=== PATIENT | female | born 1985 | race Caucasian/White ===

== ENCOUNTER 2017-06-28 05:20 | Emergency (ER) | payer MEDICAID ==
[~2017-06-28] VITALS: Wt 63.5 kg
[2017-06-28] MEDS ORDERED: SOD CHLORIDE 0.9% 1,000 ML IV STA (06:37)
[2017-06-28] MEDS ORDERED: morphine 2 MG INJ IV STA (06:37)
[2017-06-28] MEDS ORDERED: ONDANSETRON 4 MG INJ IV STA (06:37)
--- NOTE | 2017-06-28 06:40 | ERD ---
ER Documentation Chief Complaint Date/Time DATE: 06/28/17 TIME: 06:39 Chief Complaint AP radiating to the Right side, back and legs x2 hours HPI Patient is a 31-year-old female who presents with abdominal pain that began about 3 hours ago. She states it begins in her right flank and radiates forward. She has had nausea and vomiting. No diarrhea. No fever. No dysuria hematuria or increased urinary frequency. Pain is sharp in nature and 8 out of 10. Last menstrual period was on the 11th of last month. ROS All systems reviewed and are negative except as per history of present illness. Medications Home Meds Active Scripts Hydrocodone/Acetaminophen ([place] 5-325 Tablet) 1 Each Tablet, 1 TAB PO Q6H Y for PAIN, #15 TAB Prov:JACIEL FRANCES PA-C 06/28/17 Cephalexin* (Keflex*) 500 Mg Capsule, 500 MG PO BID for 7 Days, CAP Prov:JACIEL FRANCES PA-C 06/28/17 Ibuprofen* (Motrin*) 600 Mg Tab, 600 MG PO Q6, #30 TAB Prov:JACIEL FRANCES PA-C 06/28/17 Allergies Allergies: Coded Allergies: No Known Allergy (Verified , 12/25/14) PMhx/Soc History of Surgery: No Anesthesia Reaction: No Hx Neurological Disorder: No Hx Respiratory Disorders: No Hx Cardiac Disorders: No Hx Psychiatric Problems: No Hx Miscellaneous Medical Probl: No Hx Alcohol Use: No Hx Substance Use: No Hx Tobacco Use: No FmHx Family History: No diabetes Physical Exam Vitals Vital Signs Date Time Temp Pulse Resp B/P Pulse Ox O2 Delivery O2 Flow Rate FiO2 06/28/17 05:25 98.0 79 20 106/63 100 Physical Exam INITIAL VITAL SIGNS: Reviewed by me GENERAL: Awake, alert and oriented x 4, well appearing, nontoxic, speaking in full sentences. No acute distress HEAD: Atraumatic NECK: Supple. No masses. Full range of motion. No meningismus. No midline tenderness. RESPIRATORY: Clear to auscultation bilaterally. Symmetric chest wall rise. No wheezing or rales. No accessory muscle use. CV: Regular rate and rhythm. No murmurs, rubs, or gallops. ABDOMEN: Soft, non-distended. Nontender. Negative [place]. Negative McBurneys point tenderness. No CVA tenderness bilaterally. No guarding. No rebound. : Deffered. EXTREMITIES: No clubbing or cyanosis. No edema. Moving all extremities normally. BACK: No midline tenderness to palpation. No step-offs. Result Diagram: 06/28/17 0645 06/28/17 0645 Results 24 hrs Laboratory Tests Test 06/28/17 06:45 White Blood Count 7.010^3/ul Red Blood Count 4.1510^6/ul Hemoglobin 12.0g/dl Hematocrit 36.4% Mean Corpuscular Volume 87.7fl Mean Corpuscular Hemoglobin 28.9pg Mean Corpuscular Hemoglobin Concent 33.0g/dl Red Cell Distribution Width 12.8% Platelet Count 83817^3/UL Mean Platelet Volume 10.4fl Neutrophils % 79.6% Lymphocytes % 14.2% Monocytes % 5.2% Eosinophils % 0.3% Basophils % 0.3% Nucleated Red Blood Cells % 0.0/100WBC Neutrophils # (Manual) 5.510^3/ul Lymphocytes # 1.010^3/ul Monocytes # 0.410^3/ul Eosinophils # 0.010^3/ul Basophils # 0.010^3/ul Nucleated Red Blood Cells # 0.010^3/ul Urine Color RED Urine Clarity CLOUDY Urine pH 6.0 Urine Specific [place] 1.020 Urine Ketones NEGATIVEmg/dL Urine Nitrite NEGATIVEmg/dL Urine Bilirubin NEGATIVEmg/dL Urine Urobilinogen NEGATIVEmg/dL Urine Leukocyte Esterase 2+Raul/ul Urine Microscopic RBC > 182/HPF Urine Microscopic WBC 95/HPF Urine Squamous Epithelial Cells FEW/HPF Urine Bacteria FEW/HPF Urine Mucus FEW/HPF Urine Hemoglobin 3+mg/dL Urine Glucose NEGATIVEmg/dL Urine Total Protein 2+mg/dl Sodium Level 141mmol/L Potassium Level 3.7mmol/L Chloride Level 105mmol/L Carbon Dioxide Level 28mmol/L Anion Gap 12 Blood Urea Nitrogen 16mg/dl Creatinine 0.70mg/dl Glucose Level 116mg/dl Calcium Level 9.1mg/dl Total Bilirubin 0.3mg/dl Direct Bilirubin 0.00mg/dl Indirect Bilirubin 0.3mg/dl Aspartate Amino Transf (AST/SGOT) 23IU/L Alanine Aminotransferase (ALT/SGPT) 30IU/L Alkaline Phosphatase 102IU/L Total Protein 7.2g/dl Albumin 4.3g/dl Globulin 2.90g/dl Albumin/Globulin Ratio 1.48 Lipase 25U/L Current Medications Medications (Trade) Dose Ordered Sig/Tatiana Route PRN Reason Start Time Stop Time Status Last Admin Dose Admin Sodium Chloride (NS) 1,000 ml @ 1,000 mls/hr Q1H STAT IV 06/28/17 06:37 06/28/17 07:36 DC 06/28/17 06:49 Morphine Sulfate (morphine) 2 mg ONCE STAT IV 06/28/17 06:37 06/28/17 06:38 DC 06/28/17 06:48 Ondansetron HCl (Zofran Inj) 4 mg ONCE STAT IV 06/28/17 06:37 06/28/17 06:38 DC 06/28/17 06:48 Procedures/MDM Patients is alert, oriented, well appearing, and in no distress with normal vital signs. There is no fever, tachycardia, or tachypnea. The differential diagnosis includes but is not limited to appendicitis, cholelithiasis, cholecystitis, pancreatitis, hepatitis, gastritis, peptic ulcer disease, bowel obstruction, diverticulitis, renal disease including stones, torsion, AAA, pyelonephritis, and others. Abdominal labs and CT was ordered. Patient was given IV fluids, Zofran, and morphine.CBC and chemistry panel unremarkable. Urinalysis does show evidence of infection and CT scan shows a 3 mm x 4 mm kidney stone with mild hydronephrosis. Patient is well-appearing and had improvement of her symptoms with the medications she is suitable for outpatient management and was given prescription for ibuprofen, [place], and Keflex. Departure Diagnosis: Primary Impression: UTI (urinary tract infection) Additional Impression: Renal colic Condition: Stable JACIEL FRANCES PA-C Jun 28, 2017 06:40
[2017-06-28 07:05] LABS: BASOPHILS % 0.3 % (0.0-2.0); EOSINOPHILS % 0.3 % (0.0-7.0); HEMATOCRIT 36.4 % (37.0-47.0); LYMPHOCYTES % 14.2 % (15.0-51.0); MEAN CORPUSCULAR HEMOGLOBIN 28.9 pg (29.0-33.0); MEAN CORPUSCULAR VOLUME 87.7 fl (82.0-101.0); MEAN PLATELET VOLUME 10.4 fl (7.4-10.4); MONOCYTE # 0.4 10^3/ul (0.3-0.9); MONOCYTES % 5.2 % (0.0-11.0); NEUTROPHILS % 79.6 % (39.0-77.0); PLATELET COUNT 230 10^3/UL (140-415); RED BLOOD COUNT 4.15 10^6/ul (4.20-5.40); RED CELL DISTRIBUTION WIDTH 12.8 % (11.5-14.5)
[2017-06-28 07:29] LABS: ADD UMIC YES; UR ASCORBIC ACID NEGATIVE (NEGATIVE); UR BACTERIA FEW /HPF (NONE SEEN); UR BILIRUBIN (Dip) NEGATIVE (NEGATIVE); UR BLOOD (Dip) 3+ mg/dL (NEGATIVE); UR CLARITY CLOUDY (CLEAR); UR COLOR RED (YELLOW); UR GLUCOSE (Dip) NEGATIVE (NEGATIVE); UR KETONES (Dip) NEGATIVE (NEGATIVE); UR LEUKOCYTE ESTERASE (Dip) 2+ Leu/ul (NEGATIVE); UR MUCUS FEW /HPF (NONE SEEN); UR NITRITE (Dip) NEGATIVE (NEGATIVE); UR RBC > 182 /HPF (0-5); UR SQUAMOUS EPITHELIAL CELL FEW /HPF (FEW); UR TOTAL PROTEIN (Dip) 2+ mg/dl (NEGATIVE); UR UROBILINOGEN (Dip) NEGATIVE (NEGATIVE)
[2017-06-28 07:31] LABS: ALBUMIN 4.3 g/dl (3.3-4.9); ALBUMIN/GLOBULIN RATIO 1.48; BILIRUBIN,INDIRECT 0.3 mg/dl (0-1.1); BILIRUBIN,TOTAL 0.3 mg/dl (0.2-1.3); CALCIUM 9.1 mg/dl (8.4-10.2); CREATININE 0.7 mg/dl (0.44-1.00); POTASSIUM 3.7 mmol/L (3.5-5.1); TOTAL PROTEIN 7.2 g/dl (6.1-8.1)
--- NOTE | 2017-06-28 07:45 | RADRPT ---
PROCEDURE: CT Abdomen and pelvis without contrast. CLINICAL INDICATION: Abdominal pain. TECHNIQUE: CT scan of the abdomen and pelvis was performed on a multi-detector high-resolution CT scanner. Contiguous axial images were obtained from the lung bases to the ischial tuberosities wit hout intravenous contrast. Coronal and sagittal reformatted images were also obtained. Images were reviewed on the PACS workstation. One or more of the following dose reduction techniques were used: - Automated exposure control. - Adjustment of the mA and/or kV according to patient size. - Use of iterative reconstruction technique. Exam CTD/vol = 8.42 mGy. Total exam DLP = 459.73 mGy-cm. COMPARISON: None. FINDINGS: Evaluation of the lung bases demonstrates no pleural or parenchymal disease. Abdomen: The liver is normal in size. There is no focal mass or dilatation of the biliary tree. T he patient is status post cholecystectomy. The spleen is normal in size with punctate calcification s compatible with old granulomatous disease. The pancreas and bilateral adrenal glands are within no rmal limits. Bilateral kidneys are normal in size with no contour deforming mass identified. There is no radiopaque renal calculus identified. There is mild right-sided hydronephrosis. There is a 4 x 3 mm calculus at the right ureteropelvic junction. There is no retroperitoneal adenopathy. The abdominal aorta is of normal caliber. There is no abnormal bowel wall thickening or distension. There is no bowel obstruction or free air . A normal appendix is identified. There is no diverticulosis or diverticulitis. There is no asci sharlene. Pelvis: The bladder is unremarkable. The uterus contains an intrauterine device. There are multipl e cysts within the left adnexa with the largest measuring 4.1 x 3.7 cm. There is no significant pel jaylene adenopathy or free fluid. Evaluation of the osseous structures demonstrates no suspicious lytic or blastic lesion. IMPRESSION: Right ureteropelvic junction 4 x 3 mm calculus with mild right-sided hydronephrosis. Status post cholecystectomy. Multiple left adnexal cysts measuring up to 4.1 cm. Intrauterine device. .Tre Mann MD, Date Time Electronically viewed and signed by .Tre Mann MD, on 06/28/2017 07:45 .T/
[2017-06-28] MEDS ORDERED: HYDR-906 PO (07:50)
[2017-06-28] MEDS ORDERED: IBUP-1542 PO (07:50)
[2017-06-28] MEDS ORDERED: CEPH-443 PO (07:50)
[2017-06-28 08:13] VITALS: BP 105/60; PULSE 68; RESP 20; TEMP 98
== END 2017-06-28 08:10 | disposition home or self-care (01) ==
LOC: FTE 05:20
DX: N39.0 Urinary tract infection, site not specified (principal); N23 Unspecified renal colic
CPT/HCPCS: 36415; 74176; 80053; 81001; 83690; 85025; 96374; 96375; J2270; J2405; J7030; Z7502

== ENCOUNTER 2017-07-03 14:45 | Emergency (ER) | payer MEDICAID ==
[~2017-07-03] VITALS: Ht 152.4 cm; Wt 63.0 kg
[~2017-07-03 14:45] MED LIST: CEPH-443 PO; HYDR-906 PO; IBUP-1542 PO
[2017-07-03 15:03] VITALS: Ht 152.4 cm; Wt 63.0 kg
[2017-07-03] MEDS ORDERED: KETOROLAC 30 MG INJ IV STA (15:44)
[2017-07-03] MEDS ORDERED: ONDANSETRON 4 MG INJ IV STA (15:44)
[2017-07-03] MEDS ORDERED: SOD CHLORIDE 0.9% 1,000 ML IV ONE (16:00)
--- NOTE | 2017-07-03 16:40 | RADRPT ---
PROCEDURE: Ultrasound Retroperitoneum. CLINICAL INDICATION: Flank pain. TECHNIQUE: Bravo scale and color flow sonographic images of the kidneys and retroperitoneum were ob tained. The images were reviewed on a PACS workstation. COMPARISON: CT June 28, 2017 FINDINGS: The right kidney measures 10.8 cm. The left kidney measures 10.1 cm. The kidneys demonstrate normal echogenicity. A 4 mm echogenic, shadowing stone is seen in the inferior pole of the right kidney. N o hydronephrosis or solid masses are identified. The bladder is filled with a moderate amount of urine and has an unremarkable appearance. IMPRESSION: Nonobstructing right renal stone. RPTAT: AA .Yosef Rahman MD, Date Time Electronically viewed and signed by .Yosef Rahman MD, MD on 07/03/2017 16:40 .P/
[2017-07-03 17:22] LABS: BASOPHILS % 0.3 % (0.0-2.0); EOSINOPHILS # 0.1 10^3/ul (0.0-0.5); HEMATOCRIT 36.7 % (37.0-47.0); HEMOGLOBIN 11.7 g/dl (12.0-16.0); LYMPHOCYTES % 28.3 % (15.0-51.0); MEAN CORPUSCULAR HEMOGLOBIN 27.9 pg (29.0-33.0); MEAN CORPUSCULAR HGB CONC 31.9 g/dl (32.0-37.0); MEAN CORPUSCULAR VOLUME 87.6 fl (82.0-101.0); MEAN PLATELET VOLUME 10.3 fl (7.4-10.4); MONOCYTE # 0.4 10^3/ul (0.3-0.9); MONOCYTES % 6.2 % (0.0-11.0); NEUTROPHIL # 4.4 10^3/ul (1.6-7.5); NEUTROPHILS % 64.1 % (39.0-77.0); PLATELET COUNT 225 10^3/UL (140-415); RED BLOOD COUNT 4.19 10^6/ul (4.20-5.40); WHITE BLOOD COUNT 6.9 10^3/ul (4.8-10.8)
[2017-07-03 17:38] LABS: ADD UMIC YES; UR ASCORBIC ACID NEGATIVE (NEGATIVE); UR BACTERIA FEW /HPF (NONE SEEN); UR BILIRUBIN (Dip) NEGATIVE (NEGATIVE); UR BLOOD (Dip) 3+ mg/dL (NEGATIVE); UR CLARITY SLIGHTLY CLOUDY (CLEAR); UR COLOR YELLOW (YELLOW); UR GLUCOSE (Dip) NEGATIVE (NEGATIVE); UR KETONES (Dip) NEGATIVE (NEGATIVE); UR LEUKOCYTE ESTERASE (Dip) TRACE Leu/ul (NEGATIVE); UR MUCUS MODERATE /HPF (NONE SEEN); UR NITRITE (Dip) NEGATIVE (NEGATIVE); UR RBC > 182 /HPF (0-5); UR SPECIFIC GRAVITY (Dip) 1.012 (1.003-1.030); UR SQUAMOUS EPITHELIAL CELL MODERATE /HPF (FEW); UR TOTAL PROTEIN (Dip) 2+ mg/dl (NEGATIVE); UR UROBILINOGEN (Dip) NEGATIVE (NEGATIVE)
[2017-07-03 17:52] LABS: ALBUMIN 4.5 g/dl (3.3-4.9); ALBUMIN/GLOBULIN RATIO 1.5; BILIRUBIN,INDIRECT 0.4 mg/dl (0-1.1); BILIRUBIN,TOTAL 0.4 mg/dl (0.2-1.3); CALCIUM 9.3 mg/dl (8.4-10.2); CREATININE 0.71 mg/dl (0.44-1.00); POTASSIUM 3.8 mmol/L (3.5-5.1); TOTAL PROTEIN 7.5 g/dl (6.1-8.1)
[2017-07-03] MEDS ORDERED: IBUP-1542 PO (18:10)
[2017-07-03] MEDS ORDERED: HYDR-906 PO (18:10)
[2017-07-03] MEDS ORDERED: ONDA-43 PO (18:11)
--- NOTE | 2017-07-03 18:22 | ERD ---
ER Documentation Chief Complaint Date/Time DATE: 07/03/17 TIME: 18:19 Chief Complaint RIGHT FLANK PAIN, BLOOD IN THE URINE, SEEN IN ED LAST WEEK HPI This is a 31-year-old female presents ER with right flank pain. Patient does have blood in her urine. She denies any fevers or chills. She did have nausea and vomiting. Patient denies vomiting. Patient was diagnosed with a kidney stone on Friday. She states that the pain went away but that today the pain has gotten a lot worse. Patient denies any urinary frequency or dysuria. ROS 12 point review of systems was done, all negative except per HPI. Medications Home Meds Active Scripts Ondansetron Hcl* (Zofran*) 4 Mg Tab, 4 MG PO Q4H Y for NAUSEA AND OR VOMITING for 3 Days, TAB Prov:TK GRAHAM 07/03/17 Ibuprofen* (Motrin*) 600 Mg Tab, 600 MG PO Q6, #30 TAB Prov:TK GRAHAM 07/03/17 Hydrocodone/Acetaminophen ([place] 5-325 Tablet) 1 Each Tablet, 1 TAB PO Q6H Y for PAIN, #20 TAB Prov:TK GRAHAM 07/03/17 Hydrocodone/Acetaminophen ([place] 5-325 Tablet) 1 Each Tablet, 1 TAB PO Q6H Y for PAIN, #15 TAB Prov:JACIEL FRANCES PA-C 06/28/17 Cephalexin* (Keflex*) 500 Mg Capsule, 500 MG PO BID for 7 Days, CAP Prov:JACIEL FRANCES PA-C 06/28/17 Ibuprofen* (Motrin*) 600 Mg Tab, 600 MG PO Q6, #30 TAB Prov:JACIEL FRANCES PA-C 06/28/17 Allergies Allergies: Coded Allergies: No Known Allergy (Verified , 12/25/14) PMhx/Soc History of Surgery: Yes (cholecystectomy ) Anesthesia Reaction: No Hx Neurological Disorder: No Hx Respiratory Disorders: No Hx Cardiac Disorders: No Hx Psychiatric Problems: No Hx Miscellaneous Medical Probl: No Hx Alcohol Use: No Hx Substance Use: No Hx Tobacco Use: No Smoking Status: Never smoker Physical Exam Vitals Vital Signs Date Time Temp Pulse Resp B/P Pulse Ox O2 Delivery O2 Flow Rate FiO2 07/03/17 15:03 98.4 75 19 120/75 99 Physical Exam GENERAL: The patient is well developed and appropriate for usual state of health , in no apparent distress. HEENT: Atraumatic. CHEST: Clear to auscultation bilaterally. There are no rales, wheezes or rhonchi. HEART: Regular rate and rhythm. No murmurs, clicks, rubs or gallops. ABDOMEN: Soft, nontender and nondistended. Good bowel sounds. No rebound or guarding. No gross peritonitis. No gross organomegaly or masses. No Gutierrez sign or McBurney point tenderness. BACK: No midline or flank tenderness. EXTREMITIES: NEURO: Alert and oriented. SKIN: There is no apparent rash or petechia. The skin is warm and dry. Result Diagram: 07/03/17 1710 07/03/17 1710 Results 24 hrs Laboratory Tests Test 07/03/17 17:10 White Blood Count 6.910^3/ul Red Blood Count 4.1910^6/ul Hemoglobin 11.7g/dl Hematocrit 36.7% Mean Corpuscular Volume 87.6fl Mean Corpuscular Hemoglobin 27.9pg Mean Corpuscular Hemoglobin Concent 31.9g/dl Red Cell Distribution Width 13.0% Platelet Count 00197^3/UL Mean Platelet Volume 10.3fl Neutrophils % 64.1% Lymphocytes % 28.3% Monocytes % 6.2% Eosinophils % 1.0% Basophils % 0.3% Nucleated Red Blood Cells % 0.0/100WBC Neutrophils # 4.410^3/ul Lymphocytes # 2.010^3/ul Monocytes # 0.410^3/ul Eosinophils # 0.110^3/ul Basophils # 0.010^3/ul Nucleated Red Blood Cells # 0.010^3/ul Urine Color YELLOW Urine Clarity SLIGHTLY CLOUDY Urine pH 6.0 Urine Specific [place] 1.012 Urine Ketones NEGATIVEmg/dL Urine Nitrite NEGATIVEmg/dL Urine Bilirubin NEGATIVEmg/dL Urine Urobilinogen NEGATIVEmg/dL Urine Leukocyte Esterase TRACELeu/ul Urine Microscopic RBC > 182/HPF Urine Microscopic WBC 6/HPF Urine Squamous Epithelial Cells MODERATE/HPF Urine Bacteria FEW/HPF Urine Mucus MODERATE/HPF Urine Hemoglobin 3+mg/dL Urine Glucose NEGATIVEmg/dL Urine Total Protein 2+mg/dl Sodium Level 140mmol/L Potassium Level 3.8mmol/L Chloride Level 105mmol/L Carbon Dioxide Level 27mmol/L Anion Gap 12 Blood Urea Nitrogen 13mg/dl Creatinine 0.71mg/dl Glucose Level 99mg/dl Calcium Level 9.3mg/dl Total Bilirubin 0.4mg/dl Direct Bilirubin 0.00mg/dl Indirect Bilirubin 0.4mg/dl Aspartate Amino Transf (AST/SGOT) 20IU/L Alanine Aminotransferase (ALT/SGPT) 25IU/L Alkaline Phosphatase 96IU/L Total Protein 7.5g/dl Albumin 4.5g/dl Globulin 3.00g/dl Albumin/Globulin Ratio 1.50 Current Medications Medications (Trade) Dose Ordered Sig/Tatiana Route PRN Reason Start Time Stop Time Status Last Admin Dose Admin Ketorolac Tromethamine 30 mg 30 mg ONCE STAT IV 07/03/17 15:44 07/03/17 15:47 DC 07/03/17 15:44 Sodium Chloride (NS) 1,000 ml @ 1,000 mls/hr Q1H ONCE IV 07/03/17 16:00 07/03/17 16:59 DC 07/03/17 16:00 Ondansetron HCl (Zofran Inj) 4 mg ONCE STAT IV 07/03/17 15:44 07/03/17 15:47 DC 07/03/17 15:44 Procedures/MDM Differential diagnosis includes but is not limited to appendicitis, hernia, UTI , constipation, ectopic , ovarian torsion, PID, Mittelschmerz, fibroid , nephrolithiasis, obstructive stone. This is a 31-year-old female who presented to the ER with recurrent flank pain secondary to kidney stones. Ultrasound was done there is no evidence of obstructive stone. Patient is afebrile and well-appearing. Patient is likely experiencing pain because stone is passing. Patient will be sent home with [place], ibuprofen and Zofran. She is to follow-up with her primary care doctor within 1-2 days or return to ER sooner if symptoms worsen. She was told to continue with cephalexin that was given to her on Friday as she does have a mild UTI. I shared my medical decision making with the patient she understands and agrees with plan. Departure Diagnosis: Primary Impression: Kidney stone Condition: Stable Patient Instructions: Kidney Stone W/ Colic Additional Instructions: Llame al doctor MAANA y karen yenni MARIE PARA DENTRO DE 1-2 PRICE.Dgale a la secretaria que nosotros le instruimos hacer esta marie.Avise o llame si berry condicin se empeora antes de la marie. Regresa aqui si peor o no mejor. TK GRAHAM Jul 03, 2017 18:22
== END 2017-07-03 18:26 | disposition home or self-care (01) ==
LOC: FTE 14:45
DX: N20.0 Calculus of kidney (principal); R11.2 Nausea with vomiting, unspecified
CPT/HCPCS: 76775; 80053; 81001; 85025; 96374; 96375; J1885; J2405; J7030; Z7502

== ENCOUNTER 2017-07-25 09:26 | Emergency (ER) | payer MEDICAID ==
[~2017-07-25] VITALS: Wt 64.5 kg
[~2017-07-25 09:26] MED LIST changes: +ONDA-43 PO
[2017-07-25] MEDS ORDERED: SOD CHLORIDE 0.9% 1,000 ML IV STA (10:05)
[2017-07-25] MEDS ORDERED: KETOROLAC 30 MG INJ IV STA (10:05)
--- NOTE | 2017-07-25 10:23 | ERD ---
ER Documentation Chief Complaint Date/Time DATE: 07/25/17 TIME: 10:18 Chief Complaint PAIN WITH URINATION HPI Patient is a 31-year-old female with a past medical history of nephrolithiasis who presents to the emergency department for concerns of right-sided flank pain and dysuria. Patient states the pain originates in her right flank and does radiate down into her right pelvic region. Patient states her symptoms started last night. Patient states she has urinary frequency as well. Patient is currently on her menstrual cycle thus she is unsure if she is having hematuria. Patient denies any fevers, chills, nausea, vomiting or LOC. Patient states she was told she had a kidney stone last month however she has not followed up with a urologist. She does report completing course of antibiotics given at previous visit. ROS All systems reviewed and are negative except as per history of present illness. Medications Home Meds Active Scripts Acetaminophen* (Tylophen*) 500 Mg Capsule, 1 CAP PO Q6H Y for PAIN AND OR ELEVATED TEMP, #20 CAP Prov:CELIA REAVES PA-C 07/25/17 Ondansetron Hcl* (Zofran*) 4 Mg Tab, 4 MG PO Q4H Y for NAUSEA AND OR VOMITING for 3 Days, TAB Prov:TK GRAHAM 07/03/17 Ibuprofen* (Motrin*) 600 Mg Tab, 600 MG PO Q6, #30 TAB Prov:TK GRAHAM 07/03/17 Hydrocodone/Acetaminophen ([place] 5-325 Tablet) 1 Each Tablet, 1 TAB PO Q6H Y for PAIN, #20 TAB Prov:TK GRAHAM 07/03/17 Hydrocodone/Acetaminophen ([place] 5-325 Tablet) 1 Each Tablet, 1 TAB PO Q6H Y for PAIN, #15 TAB Prov:JACIEL FRANCES PA-C 06/28/17 Cephalexin* (Keflex*) 500 Mg Capsule, 500 MG PO BID for 7 Days, CAP Prov:JACIEL FRANCES PA-C 06/28/17 Ibuprofen* (Motrin*) 600 Mg Tab, 600 MG PO Q6, #30 TAB Prov:JACIEL FRANCES PA-C 06/28/17 Allergies Allergies: Coded Allergies: No Known Allergy (Verified , 12/25/14) PMhx/Soc History of Surgery: Yes (cholecystectomy ) Anesthesia Reaction: No Hx Neurological Disorder: No Hx Respiratory Disorders: No Hx Cardiac Disorders: No Hx Psychiatric Problems: No Hx Miscellaneous Medical Probl: No Hx Alcohol Use: No Hx Substance Use: No Hx Tobacco Use: No Smoking Status: Never smoker Physical Exam Vitals Vital Signs Date Time Temp Pulse Resp B/P Pulse Ox O2 Delivery O2 Flow Rate FiO2 07/25/17 12:02 98.6 70 18 125/68 99 Room Air 07/25/17 09:28 98.8 76 17 119/65 100 Physical Exam GENERAL: Well-developed, well-nourished female. Appears in no acute distress. HEAD: Normocephalic, atraumatic. EYES: Pupils are equally reactive bilaterally. EOMs grossly intact. No conjunctival erythema. ENT: Moist mucous membranes. No uvula deviation. No kissing tonsils. NECK: Supple. No meningismus. Normal range of motion of the neck. LUNG: Clear to auscultation bilaterally. No rhonchi, wheezing, rales or coarse breath sounds. HEART: Regular rate and rhythm. No murmurs, rubs femaleor gallops. ABDOMEN:. Soft, and nondistended. Tender to palpation in the suprapubic and right pelvic region. No rebound tenderness, no guarding. (-) McBurney's point tenderness. No CVA tenderness. BACK: No midline tenderness. EXTREMITIES: Equal pulses bilaterally. No peripheral clubbing, cyanosis or edema. No unilateral leg swelling. NEUROLOGIC: Alert and oriented. Moving all four extremities without any difficulty. Normal speech. Steady gait. SKIN: Normal color. Warm and dry. No rashes or lesions. Result Diagram: 07/25/17 1015 07/25/17 1015 Results 24 hrs Laboratory Tests Test 07/25/17 10:15 White Blood Count 5.910^3/ul Red Blood Count 4.1310^6/ul Hemoglobin 12.0g/dl Hematocrit 36.5% Mean Corpuscular Volume 88.4fl Mean Corpuscular Hemoglobin 29.1pg Mean Corpuscular Hemoglobin Concent 32.9g/dl Red Cell Distribution Width 12.9% Platelet Count 66520^3/UL Mean Platelet Volume 10.7fl Neutrophils % 68.7% Lymphocytes % 23.6% Monocytes % 6.0% Eosinophils % 0.9% Basophils % 0.3% Nucleated Red Blood Cells % 0.0/100WBC Neutrophils # 4.010^3/ul Lymphocytes # 1.410^3/ul Monocytes # 0.410^3/ul Eosinophils # 0.110^3/ul Basophils # 0.010^3/ul Nucleated Red Blood Cells # 0.010^3/ul Urine Color YELLOW Urine Clarity SLIGHTLY CLOUDY Urine pH 5.0 Urine Specific [place] 1.018 Urine Ketones NEGATIVEmg/dL Urine Nitrite NEGATIVEmg/dL Urine Bilirubin NEGATIVEmg/dL Urine Urobilinogen NEGATIVEmg/dL Urine Leukocyte Esterase NEGATIVELeu/ul Urine Microscopic RBC > 182/HPF Urine Microscopic WBC 19/HPF Urine Squamous Epithelial Cells FEW/HPF Urine Bacteria FEW/HPF Urine Mucus FEW/HPF Urine Yeast (Budding) FEW/HPF Urine Hemoglobin 3+mg/dL Urine Glucose NEGATIVEmg/dL Urine Total Protein NEGATIVEmg/dl Sodium Level 141mmol/L Potassium Level 4.5mmol/L Chloride Level 109mmol/L Carbon Dioxide Level 24mmol/L Anion Gap 13 Blood Urea Nitrogen 14mg/dl Creatinine 0.77mg/dl Glucose Level 95mg/dl Calcium Level 8.7mg/dl Total Bilirubin 0.4mg/dl Direct Bilirubin 0.00mg/dl Indirect Bilirubin 0.4mg/dl Aspartate Amino Transf (AST/SGOT) 17IU/L Alanine Aminotransferase (ALT/SGPT) 28IU/L Alkaline Phosphatase 90IU/L Total Protein 7.3g/dl Albumin 4.4g/dl Globulin 2.90g/dl Albumin/Globulin Ratio 1.51 Lipase 55U/L Current Medications Medications (Trade) Dose Ordered Sig/Tatiana Route PRN Reason Start Time Stop Time Status Last Admin Dose Admin Sodium Chloride (NS) 1,000 ml @ 1,000 mls/hr Q1H STAT IV 07/25/17 10:05 07/25/17 11:04 DC 07/25/17 10:05 Ketorolac Tromethamine (Toradol) 30 mg ONCE STAT IV 07/25/17 10:05 07/25/17 10:07 DC 07/25/17 10:05 Procedures/MDM ED COURSE: The patient was stable throughout ED course. I kept the patient and/or family informed of laboratory and diagnostic imaging results throughout the ED course. DIAGNOSTIC IMAGING: Read by radiologist. Patient: ALISA NEWMAN : 1985 Age: 31 Sex: F [id number] DOS: 07/25/17 1005 Ordering MD: CELIA REAVES PA-C Location: [facility] Room/Bed: PROCEDURE: US Renal CLINICAL INDICATION: Right flank pain TECHNIQUE: Multiple sonographic images of the kidneys and bladder were obtained. Evaluation of the kidneys and bladder was performed as well with de la vega scale and color and Doppler evaluation using a curved array transducer. The images were reviewed on a high-resolution PACS workstation. COMPARISON: Renal ultrasound dated 07/03/[address] abdomen and pelvis dated 06/28/2017 FINDINGS: The right kidney measures 10.1 cm in length. There is mild to moderate right hydronephrosis. The AP diameter of the right renal pelvis measures approximate 13 mm. There is mild right perinephric free fluid. The left kidney measures 10.1 cm in length. The renal parenchyma demonstrates normal echogenicity. The bladder is under distended, but otherwise unremarkable. IMPRESSION: 1. Mild to moderate right hydronephrosis with right perinephric free fluid. Findings are increased when compared to the prior renal ultrasound dated 2016. 2. Unremarkable appearance of the left kidney. RPTAT: HH .Maggie Pro MD, MD Date Time Electronically viewed and signed by .Maggie Pro MD, on 07/25/2017 10 :46 .G/ CC: CELIA REAVES PA-C PROCEDURES: None. MEDICATIONS GIVEN: IV fluids, Toradol Patient tolerated medication well with no adverse reactions. Patient reported improvement in pain. MEDICAL DECISION MAKING: This is a 31-year-old female with a past medical history of nephrolithiasis and UTI who presents emergency department for concerns of dysuria and right-sided flank pain radiating into her right pelvic region. Patient states symptoms started yesterday night. Patient was diagnosed with a kidney stone approximately 1 month ago. Patient has not seen a urologist yet. Review of the patient's previous CT scan on 06-28-17, patient was noted to have a right ureteropelvic junction 4 x 3 mm calculus with mild right-sided hydronephrosis. She also had renal ultrasound done on 07-03-17 which showed right hydronephrosis. Vital signs were reviewed. Patient was afebrile. UA showed >182 RBCs and 19 WBCs with no nitrites or leukocytes.Bacteria and mucus found resembling likely contaminated. Patient is currently on her menstrual which likely is affected the RBC count on the urine. Urine was negative. Given that patient does have documentation showing recent CT scan, I do not believe a repeat CT scan is indicated at this time. A repeat right renal ultrasound was obtained. Renal US showed 1. Mild to moderate right hydronephrosis with right perinephric free fluid. Findings are increased when compared to the prior renal ultrasound dated 07/03/2017. 2. Unremarkable appearance of the left kidney. CBC showed no evidence of systemic infection or severe anemia. CMP showed no evidence of electrolyte abnormalities, severe acidosis, alkalosis, renal failure , or liver disease. Lipase showed no evidence of acute pancreatitis. Given these findings, the patients presentation is most consistent with hematuria and hydronephrosis. Patient may have recently passed previous stones. I have a much lower clinical concern for retained stone, septic stone, UTI, acute kidney injury, pyelonephritis, appendicitis, diverticulitis, , ectopic , PID. Patient advised to follow up w a urologist on outpatient basis. Referral information given. PRESCRIPTIONS: Tylenol DISCHARGE: At this time, patient is stable for discharge and outpatient management. Patient given a copy of all blood work and imaging studies obtained today. I have instructed the patient to follow-up with his/her primary care physician in 1-2 days. If symptoms persist, patient may need to see a specialist for further examinations and testing. I have instructed the patient to promptly return to the ER at any time for any new or worsening symptoms including increased increased pain, fever, nausea, vomiting, urinary changes or weakness. The patient and/or family expressed understanding of and agreement with this plan. All questions were answered. Home care instructions were provided. Disclaimer: Inadvertent spelling and grammatical errors are likely due to EHR/ dictation software use and do not reflect on the overall quality of patient care. Also, please note that the electronic time recorded on this note does not necessarily eflect the actual time of the patient encounter. Departure Diagnosis: Primary Impression: Hematuria Hematuria type: unspecified type Qualified Code: R31.9 - Hematuria, unspecified type Additional Impression: Hydronephrosis Hydronephrosis type: unspecified Qualified Code: N13.30 - Hydronephrosis, unspecified hydronephrosis type Condition: Stable Patient Instructions: Hematuria, Hydronephrosis Adult Referrals: ALYSHA MIRZA MD,[place]O CASTRO,NILES MONTERO,KOTA FLORENCE,MAX MISHRA,BENITA MARC,JANUARY GARAY,KINJAL MERCADO= [facility] YOU HAVE RECEIVED A MEDICAL SCREENING EXAM AND THE RESULTS INDICATE THAT YOU DO NOT HAVE A CONDITION THAT REQUIRES URGENT TREATMENT IN THE EMERGENCY DEPARTMENT. FURTHER EVALUATION AND TREATMENT OF YOUR CONDITION CAN WAIT UNTIL YOU ARE SEEN IN YOUR DOCTORS OFFICE WITHIN THE NEXT 1-2 DAYS. IT IS YOUR RESPONSIBILITY TO MAKE AN APPOINTMENT FOR FOLOW-UP CARE. IF YOU HAVE A PRIMARY DOCTOR --you should call your primary doctor and schedule an appointment IF YOU DO NOT HAVE A PRIMARY DOCTOR YOU CAN CALL OUR PHYSICIAN REFERRAL HOTLINE AT IF YOU CAN NOT AFFORD TO SEE A PHYSICIAN YOU CAN CHOSE FROM THE FOLLOWING [facility] [address] [facility]. [facility] [address] [facility] [facility] [address] [facility] [facility] [address] [facility] [facility] [address] [facility]. [facility]. [address] [facility]. [facility] YOU HAVE RECEIVED A MEDICAL SCREENING EXAM AND THE RESULTS INDICATE THAT YOU DO NOT HAVE A CONDITION THAT REQUIRES URGENT TREATMENT IN THE EMERGENCY DEPARTMENT. FURTHER EVALUATION AND TREATMENT OF YOUR CONDITION CAN WAIT UNTIL YOU ARE SEEN IN YOUR DOCTORS OFFICE WITHIN THE NEXT 1-2 DAYS. IT IS YOUR RESPONSIBILITY TO MAKE AN APPOINTMENT FOR FOLOW-UP CARE. IF YOU HAVE A PRIMARY DOCTOR --you should call your primary doctor and schedule and appointment IF YOU DO NOT HAVE A PRIMARY DOCTOR YOU CAN CALL OUR PHYSICIAN REFERRAL HOTLINE AT . IF YOU CAN NOT AFFORD TO SEE A PHYSICIAN YOU CAN CHOSE FROM THE FOLLOWING [facility]: [facility] [address] [place] [address] [facility] [address] [place] [address] [facility] [address] [place] [address] Additional Instructions: Call your primary care doctor TOMORROW for an appointment during the next 1-2 days.See the doctor sooner or return here if your condition worsens before your appointment time. Patient will need to follow-up with the urologist on an outpatient basis. Patient should be followed by urologist for kidney stones/ hydronephrosis. CELIA REAVES PA-C Jul 25, 2017 10:23
[2017-07-25 10:38] LABS: BASOPHILS % 0.3 % (0.0-2.0); EOSINOPHILS # 0.1 10^3/ul (0.0-0.5); EOSINOPHILS % 0.9 % (0.0-7.0); HEMATOCRIT 36.5 % (37.0-47.0); LYMPHOCYTES # 1.4 10^3/ul (0.8-2.9); LYMPHOCYTES % 23.6 % (15.0-51.0); MEAN CORPUSCULAR HEMOGLOBIN 29.1 pg (29.0-33.0); MEAN CORPUSCULAR HGB CONC 32.9 g/dl (32.0-37.0); MEAN CORPUSCULAR VOLUME 88.4 fl (82.0-101.0); MEAN PLATELET VOLUME 10.7 fl (7.4-10.4); MONOCYTE # 0.4 10^3/ul (0.3-0.9); NEUTROPHILS % 68.7 % (39.0-77.0); PLATELET COUNT 215 10^3/UL (140-415); RED BLOOD COUNT 4.13 10^6/ul (4.20-5.40); RED CELL DISTRIBUTION WIDTH 12.9 % (11.5-14.5); WHITE BLOOD COUNT 5.9 10^3/ul (4.8-10.8)
--- NOTE | 2017-07-25 10:46 | RADRPT ---
PROCEDURE: US Renal CLINICAL INDICATION: Right flank pain TECHNIQUE: Multiple sonographic images of the kidneys and bladder were obtained. Evaluation of th e kidneys and bladder was performed as well with de la vega scale and color and Doppler evaluation using a curved array transducer. The images were reviewed on a high-resolution PACS workstation. COMPARISON: Renal ultrasound dated 07/03/[address] abdomen and pelvis dated 06/28/2017 FINDINGS: The right kidney measures 10.1 cm in length. There is mild to moderate right hydronephrosis. The AP diameter of the right renal pelvis measures approximate 13 mm. There is mild right perinephric free fluid. The left kidney measures 10.1 cm in length. The renal parenchyma demonstrates normal echogeni city. The bladder is under distended, but otherwise unremarkable. IMPRESSION: 1. Mild to moderate right hydronephrosis with right perinephric free fluid. Findings are increased when compared to the prior renal ultrasound dated 07/03/2017. 2. Unremarkable appearance of the left kidney. RPTAT: HH .Maggie Pro MD, Date Time Electronically viewed and signed by .Maggie Pro MD, on 07/25/2017 10:46 .G/
[2017-07-25 10:56] LABS: ALBUMIN 4.4 g/dl (3.3-4.9); ALBUMIN/GLOBULIN RATIO 1.51; BILIRUBIN,INDIRECT 0.4 mg/dl (0-1.1); BILIRUBIN,TOTAL 0.4 mg/dl (0.2-1.3); CALCIUM 8.7 mg/dl (8.4-10.2); CREATININE 0.77 mg/dl (0.44-1.00); POTASSIUM 4.5 mmol/L (3.5-5.1); TOTAL PROTEIN 7.3 g/dl (6.1-8.1)
[2017-07-25 10:59] LABS: ADD UMIC YES; UR ASCORBIC ACID NEGATIVE (NEGATIVE); UR BACTERIA FEW /HPF (NONE SEEN); UR BILIRUBIN (Dip) NEGATIVE (NEGATIVE); UR BLOOD (Dip) 3+ mg/dL (NEGATIVE); UR BUDDING YEAST FEW /HPF (NONE SEEN); UR CLARITY SLIGHTLY CLOUDY (CLEAR); UR COLOR YELLOW (YELLOW); UR GLUCOSE (Dip) NEGATIVE (NEGATIVE); UR KETONES (Dip) NEGATIVE (NEGATIVE); UR LEUKOCYTE ESTERASE (Dip) NEGATIVE Leu/ul (NEGATIVE); UR MUCUS FEW /HPF (NONE SEEN); UR NITRITE (Dip) NEGATIVE (NEGATIVE); UR RBC > 182 /HPF (0-5); UR SPECIFIC GRAVITY (Dip) 1.018 (1.003-1.030); UR SQUAMOUS EPITHELIAL CELL FEW /HPF (FEW); UR TOTAL PROTEIN (Dip) NEGATIVE (NEGATIVE); UR UROBILINOGEN (Dip) NEGATIVE (NEGATIVE)
[2017-07-25] MEDS ORDERED: ACET500C5 PO (11:43)
[2017-07-25 12:02] VITALS: BP 125/68; PULSE 70; RESP 18; TEMP 98.6
== END 2017-07-25 12:05 | disposition home or self-care (01) ==
LOC: FTE 09:26
DX: R31.9 Hematuria, unspecified (principal); N13.30 Unspecified hydronephrosis
CPT/HCPCS: 36415; 76775; 80053; 81001; 83690; 85025; 96374; J1885; J7030; Z7502

== ENCOUNTER 2018-05-08 08:44 | Emergency (ER) | END 2018-05-08 10:45 | disposition home or self-care (01) ==

== ENCOUNTER 2019-02-27 15:36 | Emergency (ER) | payer MEDICAID ==
[~2019-02-27] VITALS: Ht 154.9 cm; Wt 64.0 kg
[~2019-02-27 15:36] MED LIST changes: +ACET500C5 PO; +CIPR500T4 PO; +HYDR-4011 PO; -HYDR-906 PO; +METR500T PO; +NAPR-985 PO; -ONDA-43 PO; +ONDA4TAB13 PO; +ONDA4TAB14 PO
[2019-02-27 15:48] VITALS: Ht 154.9 cm; Wt 64.0 kg
[2019-02-27] MEDS ORDERED: LIDOCAINE 2% (MDV) 20 ML INJ INJ STA (18:07)
[2019-02-27] MEDS ORDERED: ACETAMINOPHEN 325 MG TAB PO STA (18:07)
[2019-02-27] MEDS ORDERED: DIPHTH/TET/ACEL PERTUSS (ADULT) 0.5 ML VIAL IM* ONE (18:30)
[2019-02-27] MEDS ORDERED: IBUP-1542 PO (19:35)
--- NOTE | 2019-02-27 19:46 | ERD ---
ER Documentation Chief Complaint Chief Complaint pt bib self with c/o lac to right ring finger from knife today HPI 33-year-old female presents with laceration to the right finger. Patient states was cooking and cut self with clean knife prior to arrival. Notes to have been bleeding diffusely with no control with active pressure. Patient rates pain as 10 out of 10, throbbing. Denies numbness or tingling of the extremities. Patient has not taken any medication for pain prior to arrival. Pain is worse with manipulation of the affected digit. She denies any use of aspirin or blood thinners. ROS All systems reviewed and are negative except as per history of present illness. Medications Home Meds Active Scripts Ibuprofen* (Motrin*) 600 Mg Tab, 600 MG PO Q6, #30 TAB Prov:MICHELLE GRULLON PA-C 02/27/19 Metronidazole* (Flagyl*) 500 Mg Tablet, 500 MG PO TID for 7 Days, TAB Prov:ALAN BURCIAGA MD 05/13/18 Ondansetron (Ondansetron Odt) 4 Mg Tab.rapdis, 4 MG PO Q6H PRN for NAUSEA AND/OR VOMITING, #10 TAB Prov:GERMAIN GAONA PA-C 05/08/18 Naproxen* (Naprosyn*) 500 Mg Tablet, 500 MG PO BID PRN for PAIN AND/OR INFLAMMATION, #30 TAB Prov:GERMAIN GAONA PA-C 05/08/18 Ciprofloxacin Hcl* (Ciprofloxacin Hcl*) 500 Mg Tablet, 500 MG PO BID for 7 Days, TAB Prov:GERMAIN GAONA PA-C 05/08/18 Acetaminophen* (Tylophen*) 500 Mg Capsule, 1 CAP PO Q6H PRN for PAIN AND OR ELEVATED TEMP, #20 CAP Prov:CELIA REAVES PA-C 07/25/17 Ondansetron Hcl* (Zofran*) 4 Mg Tab, 4 MG PO Q4H PRN for NAUSEA AND OR VOMITING for 3 Days, TAB Prov:TK GRAHAM 07/03/17 Ibuprofen* (Motrin*) 600 Mg Tab, 600 MG PO Q6, #30 TAB Prov:TK GRAHAM 07/03/17 Hydrocodone/Acetaminophen ([place] 5-325 Tablet) 1 Each Tablet, 1 TAB PO Q6H PRN for PAIN, #20 TAB Prov:TK GRAHAM 07/03/17 Hydrocodone/Acetaminophen ([place] 5-325 Tablet) 1 Each Tablet, 1 TAB PO Q6H PRN for PAIN, #15 TAB Prov:JACIEL FRANCES KELLY 06/28/17 Cephalexin* (Keflex*) 500 Mg Capsule, 500 MG PO BID for 7 Days, CAP Prov:JACIEL FRANCES KELLY 06/28/17 Ibuprofen* (Motrin*) 600 Mg Tab, 600 MG PO Q6, #30 TAB Prov:JACIEL FRANCES PA-C 06/28/17 Allergies Allergies: Coded Allergies: No Known Allergy (Verified , 12/25/14) PMhx/Soc Medical and Surgical Hx: pt denies Medical Hx History of Surgery: Yes (gustavo) Anesthesia Reaction: No Hx Neurological Disorder: No Hx Respiratory Disorders: No Hx Cardiac Disorders: No Hx Psychiatric Problems: No Hx Miscellaneous Medical Probl: No Hx Alcohol Use: No Hx Substance Use: No Hx Tobacco Use: No Smoking Status: Never smoker FmHx Family History: No diabetes, No coronary disease, No other Physical Exam Vitals Vital Signs Date Temp Pulse Resp B/P (MAP) Pulse Ox O2 O2 Flow FiO2 Time Delivery Rate 02/27/19 99.5 69 18 118/56 98 15:48 (76) Physical Exam Const: No acute distress Head: Atraumatic Eyes: Normal Conjunctiva ENT: Normal External Ears, Nose and Mouth. Neck: Full range of motion. No meningismus. Resp: Clear to auscultation bilaterally Cardio: Regular rate and rhythm, no murmurs Abd: Soft, non tender, non distended. Normal bowel sounds Skin: No petechiae or rashes. 2 cm curved laceration to the distal phalanx of the right ring finger, actively bleeding, tender to palpation Ext: No cyanosis, or edema. Full range of motion of the affected extremity. Sensation intact to radial, medial, ulnar distribution. Radial pulse 2+. Neur: Awake and alert Psych: Normal Mood and Affect Results 24 hrs Current Medications Medications Dose Sig/Tatiana Start Time Status Last (Trade) Ordered Route PRN Stop Time Admin Dose Reason Admin Diphtheria/ 0.5 ml ONCE ONCE 02/27/19 DC 02/27/19 Tetanus/Acell IM* 18:30 18:14 Pertussis 02/27/19 18:31 (Adacel) Lidocaine 20 ml ONCE STAT 02/27/19 DC (Xylocaine INJ 18:07 2% (Mdv) 20 02/27/19 18:09 ml) 650 mg ONCE STAT 02/27/19 DC 02/27/19 Acetaminophen PO 18:07 18:13 (Tylenol 02/27/19 18:09 Tab) Procedures/MDM Laceration Repair by me: Anesthesia: 1% lidocaine locally Location: Digital block of the right ring finger, local infiltration at the right distal phalanx Tendon/Joint/Nerves: No injury Foreign body: None detected after copious irrigation and exploration Technique: Simple Interrupted Sutures using 5-0 nylon. Complexity: No subcutaneous sutures/mucosal repair/edge excision Post Closure Length: 2cm Patient's bleeding was easily controlled in the department and there is no indication of anemia. 7 simple interrupted sutures placed No evidence of compartment syndrome, neurologic injury, vascular injury, open joint, tendon laceration, or foreign body. Patient is appropriate for outpatient follow up. 48 hour wound check. Scar minimization instructions given. MDM: Patient presents with 2 cm laceration over distal phalanx of the right distal phalanx. Patient has 2+ distal pulses, good capillary refill, and is neurovascularly intact. Wound was irrigated profusely with saline, anesthetized with 1% Lidocaine, 7 simple interrupted sutures were placed. During procedure patient with very low pain tolerance and visibly anxious. 2 cc used for digital block after 30 minutes patient still admitted to pain of the affected digit. Due to amounts of lidocaine use during digital block felt that further digital block was not appropriate and local infiltration performed with 0.5 cc directly infiltrated into the wound. Due to direct infiltration complete approximation was not able to be performed, however, status post laceration repair hemostasis achieved. Counseled patient extensively regarding wound care precautions, and advised to return within 48 hours for wound evaluation. At this time I have low suspicion for tendon injury, NV compromise, or retained foreign body. Patient is stable for discharge home and outpatient management at this time. Patient discharged with prescription for Motrin. Advised to follow up with PCP in 1-2 days. Strict return precautions discussed. Departure Diagnosis: Primary Impression: Laceration Condition: Good Patient Instructions: Laceration, Hand Additional Instructions: You were seen today for a laceration to your right ring finger. 7 sutures were placed and your finger was immobilized with an aluminum splint. Please return within 48 hours for wound check to ensure proper healing. Return within 7 to 14 days for suture removal. MICHELLE GRULLON PA-C February 27, 2019 19:46
[2019-02-27 19:53] VITALS: BP 120/60; PULSE 76; RESP 19
== END 2019-02-27 19:55 | disposition home or self-care (01) ==
LOC: FTE 15:36
DX: S61.214A Laceration without foreign body of right ring finger without damage to nail, initial encounter (principal); W26.0XXA Contact with knife, initial encounter; Y92.9 Unspecified place or not applicable; Z23 Encounter for immunization
CPT/HCPCS: 12001; 90471; 90715; Z7502; Z7610